=== PATIENT | male | born 1990 | race Caucasian/White ===

== ENCOUNTER → 2023-01-05 | Outpatient (CLI) | payer OTHER ==
[2023-01-05 09:58] LABS: Basophils % (A) 0 %; Eosinophils # (A) 0.1 k/uL (0-0.7); Eosinophils % (A) 1 %; HCT 37.5 % (39.0-53.0); Lymphocytes # (A) 1.2 k/uL (1.0-4.8); Lymphocytes % (A) 32 %; MCH 34.3 pg (25.0-35.0); MCHC 37.2 g/dL (31.0-37.0); MCV 92.1 fL (80.0-100.0); Mean Platelet Volume 7.9; Monocytes # (A) 0.2 k/uL (0-1.0); Monocytes % (A) 6 %; Neutrophils # (A) 2.3 k/uL (1.3-7.7); Neutrophils % (A) 59 %; Platelet Count 195 k/uL (150-450); RBC 4.07 m/uL (4.30-5.90); RDW 12.4 % (11.5-15.5); WBC 3.9 k/uL (3.8-10.6)
[2023-01-05 13:23] LABS: RBC Morphology Normal
[2023-01-05 15:49] LABS: Protein, Total 7.4 d/dL (6.2-8.2)
[2023-01-05 16:04] LABS: Magnesium 2.3 mg/dL (1.5-2.4)
[2023-01-05 16:05] LABS: Blood Urea Nitrogen 12.8 mg/dL (9.0-27.0); Calcium 9.8 mg/dL (8.7-10.3); Carbon Dioxide 27.6 mmol/L (21.6-31.8); Chloride 101 mmol/L (96-109); Glucose 101 mg/dL (70-110); Sodium 141 mmol/L (135-145)
[2023-01-05 16:45] LABS: LDH 258 U/L (120-246)
[2023-01-05 17:55] LABS: HIV 2 AB Non-Reactive (Non-Reactive); HIV AB P24 Non-Reactive (Non-Reactive); HIV P24 AG Non-Reactive (Non-Reactive)
[2023-01-05 18:00] LABS: Hepatitis A Antibody IgM Nonreactive; Hepatitis B Core IgM Nonreactive; Hepatitis B Surface Antigen Nonreactive; Hepatitis C IgG Antibody Nonreactive
== END | disposition home or self-care (01) ==
LOC: LABWHC1 09:09
PROVIDERS: ATTEND Internal Medicine
DX: D72.819 Decreased white blood cell count, unspecified (principal)
CPT/HCPCS: 36415; 80048; 80074; 82607; 82746; 83615; 83735; 84165; 85025; 86038; 87390

== ENCOUNTER → 2023-01-12 | Outpatient (CLI) | payer OTHER ==
--- NOTE | 2023-01-14 13:24 | MR ---
EXAMINATION TYPE: MR lumbar spine wo con DATE OF EXAM: 01/12/2023 12:12 PM COMPARISON: X-ray 05/14/2014 CLINICAL INDICATION: Male, 32 years old with history of M54.50; Low back pain that radiates down left leg TECHNIQUE: Multi planar, multi sequence imaging was performed utilizing: T1-weighted, T2-weighted, a nd turbo inversion recovery imaging of the lumbar spine. IV Contrast: None. FINDINGS: Alignment: The lumbar vertebral bodies have preserved heights and alignment. Cord: The conus medullaris and the distal spinal cord appear unremarkable with regards to their signa l intensity and morphology. Bones/Discs: Bone signal is within normal limits. No abnormal bony edema on inversion recovery sequen dilia. Multilevel disc degenerative is noted and most pronounced at the . Intervertebral disc signal is maintained. T12-L1: No evidence of significant spinal canal stenosis or neural foraminal stenosis. L1-L2: No evidence of significant spinal canal stenosis or neural foraminal stenosis. L2-L3: No evidence of significant spinal canal stenosis or neural foraminal stenosis. L3-L4: No evidence of significant spinal canal stenosis or neural foraminal stenosis. L4-L5: No evidence of significant spinal canal stenosis or neural foraminal stenosis. L5-S1: The disc is rounded posterior morphology without significant spinal canal stenosis. Facet join t arthropathy with mild neural foraminal stenosis. No significant spinal canal or neural foraminal stenosis in the remainder of the visualized levels. Other findings: None. IMPRESSION: 1. No definitive evidence of disc herniation or significant spinal canal or neural foraminal stenosi s. 2. Minimal disc degeneration.
== END | disposition home or self-care (01) ==
LOC: RADMRIMAIN 11:00
PROVIDERS: ATTEND Internal Medicine
DX: M51.36 Other intervertebral disc degeneration, lumbar region (principal)
CPT/HCPCS: 72148

== ENCOUNTER → 2023-04-30 | Outpatient (CLI) | payer OTHER ==
--- NOTE | 2023-04-30 11:55 | XR ---
EXAMINATION TYPE: XR shoulder complete LT DATE OF EXAM: 04/30/2023 COMPARISON: NONE HISTORY: Pain TECHNIQUE: Three views are submitted. FINDINGS: The osseous structures are intact. There is no acute fracture or dislocation. The AC joint is maint ained. IMPRESSION: 1. No acute process.
== END | disposition home or self-care (01) ==
LOC: LABWHC1 11:25
PROVIDERS: ATTEND Internal Medicine
DX: M25.512 Pain in left shoulder (principal)

== ENCOUNTER → 2023-06-03 | Outpatient (CLI) | payer OTHER ==
--- NOTE | 2023-06-03 15:42 | XR ---
EXAMINATION TYPE: XR chest 2V DATE OF EXAM: 06/03/2023 COMPARISON: NONE TECHNIQUE: PA and lateral views submitted. HISTORY: Cough FINDINGS: The lungs are clear and there is no pneumothorax, pleural effusion, or focal pneumonia. Heart size normal and no overt failure. Osseous structures intact. IMPRESSION: 1. No acute process.
== END | disposition home or self-care (01) ==
LOC: RADXRMAIN 15:25
PROVIDERS: ATTEND Internal Medicine
DX: R05.9 Cough, unspecified (principal)
CPT/HCPCS: 71046